=== PATIENT | female | born 1955 | race Caucasian/White ===

== ENCOUNTER 2019-11-24 16:39 | Emergency (ER) | payer OTHER, BC ==
--- OUTSIDE RECORDS SUMMARY | 2019-11-24 16:49 | XMS REPORT ---
:1955 [facility] Address [address] [place] [address] Care Team Providers Name Role Phone Unavailable Unavailable Unavailable Payers Payer Name Policy Type Policy Number Effective Date Expiration Date Problems This patient has no known problems. Allergies, Adverse Reactions, Alerts Allergy Name Allergy Status Severity Reaction(s) Onset Inactive Treating Comments Type Date Date Clinician codeine DA Active 2019-04 00:00:0 0 thyroid, DA Active SV 2019-04 por 00:00:0 0 MACROLIDES DA Active 2019-04 00:00:0 0 Medications This patient has no known medications. Results Test Description Test Time Test Comments Text Results Atomic Results Result Comments GLUBED 2019-04-10 07:09:00 Test Item Value Reference Range Comments GLUBED (test code=GLUBED) 123 MG/DL 74-106 BASIC METABOLIC [id number] 14:42:00 Test Item Value Reference Range Comments SODIUM (test code=NA) 141 mmol/L 137-145 POTASSIUM (test code=K) 4.0 mmol/L 3.4-5.0 CHLORIDE (test code=CL) 106 mmol/L 98-107 CARBON DIOXIDE (test 27 mmol/L 22-30 code=CO2) GLUCOSE (test code=GLU) 88 mg/dL 74-106 BLOOD UREA NITROGEN (test 16 mg/dL 7-17 code=BUN) GLOMERULAR FILTRATION RATE 53 >60 The estimated glomerular (test code=GFR) filtration rate is computed usingpatient race, age (>18), sex, and serum creatinine. If anyof the needed data elements are missing the Laboratory cannot compute an estimation of the glomerular filtration rate. CREATININE (test code=CREAT) 1.1 mg/dL 0.5-1.0 CALCIUM (test code=CA) 9.7 mg/dL 8.4-10.2 PROTHROMBIN [id number] 14:40:00 Test Item Value Reference Range Comments PROTHROMBIN TIME PATIENT 10.9 SECONDS 9.2-12.1 (test code=PTP) INTERNATIONAL NORMAL RATIO 1.0 The INR is to be used only (test code=INR) for monitoring ORAL ANTICOAGULANTTHERAPY. Indication INR Value1. Prophylaxis/treatment of: Venous Thrombosis, Pulmonary Embolism 2.0 - 3.02. Prevention of systemic embolism from: Tissue heart valves 2.0 - 3.0 Acute myocardial infarction (to present systemic embolism)* 2.0 - 3.0 Valvular heart disease 2.0 - 3.0 Atrial fibrillation 2.0 - 3.03. Mechanical prosthetic valves (high risk) 2.5 - 3.5 * If oral anticoagulant therapy is elected to preventrecurrent myocardial infarction, an INR of 2.5-3.5 isrecommended, consistent with Food and Drug Administrationrecommendations . IS PATIENT ON ANTICOAGULANTS ? YESLIST ANTICOAGULANT/ANTI PLT MEDICATION: AspirinTHROMBOPLASTIN TIME [id number] 14:40:00 Test Item Value Reference Range Comments THROMBOPLASTIN TIME PARTIAL 26.6 SECONDS 23.4-37.0 Therapeutic Range for (test code=PTT) Heparin EFFECTIVE 05/13/13 Heparin IU/mL aPTT Seconds0.3 64.30.7 88.8 IS PATIENT ON ANTICOAGULANTS ? YESLIST ANTICOAGULANT/ANTI PLT MEDICATION: AspirinCBC W/AUTO [id number] 14:26:00 Test Item Value Reference Range Comments WHITE BLOOD CELL (test code=WBC) 8.3 x10 3/uL 5.0-12.0 RED BLOOD CELL (test code=RBC) 4.24 x10 6/uL 4.20-5.40 HEMOGLOBIN (test code=HGB) 12.7 g/dL 12.0-16.0 HEMATOCRIT (test code=HCT) 39.4 % 36.0-46.0 MEAN CELL VOLUME (test code=MCV) 93 fL 81-99 MEAN CELL HGB (test code=MCH) 30.0 pg 27-31 MEAN CELL HGB CONCENTRATION (test code=MCHC) 32.2 g/dL 33-37 RED CELL DISTRIBUTION WIDTH (test code=RDW) 13.6 % 11.5-15.5 PLATELET COUNT (test code=PLT) 267 x10 3/uL 130-400 MEAN PLATELET VOLUME (test code=MPV) 9.2 fL 9.4-16.4 NEUTROPHIL % (test code=NT%) 69.2 % 43-65 IMMATURE GRANULOCYTE % (test code=IG%) 0.4 % 0.0-2.0 LYMPHOCYTE % (test code=LY%) 19.2 % 20.5-45.5 MONOCYTE % (test code=MO%) 7.5 % 5.5-11.7 EOSINOPHIL % (test code=EO%) 3.0 % 0.9-2.9 BASOPHIL % (test code=BA%) 0.7 % 0.2-1.0 NUCLEATED RBC % (test code=NRBC%) 0.0 % 0-1.0 NEUTROPHIL # (test code=NT#) 5.71 x10 3/uL 2.2-4.8 IMMATURE GRANULOCYTE # (test code=IG#) 0.03 x10 3/uL 0-0.03 LYMPHOCYTE # (test code=LY#) 1.58 x10 3/uL 1.3-2.9 MONOCYTE # (test code=MO#) 0.62 x10 3/uL 0.3-0.8 EOSINOPHIL # (test code=EO#) 0.25 x10 3/uL 0.0-0.2 BASOPHIL # (test code=BA#) 0.06 x10 3/uL 0.0-0.1 - XR CHEST 2 [id number] 14:10:00 FAX: Leighann Mirza [phone] [place]: [facility]: PRE FAX: Deyvi Sandoval [facility] [phone] --- Name: PAUL FUNK [facility] : 1955 Age/S: 64/F [address] Unit #: [id number] Loc: [place] [address] Phys: Deyvi Chappell DPM Acct: [id number] Dis Date: Status: PRE SDC PHONE #: [phone] Exam Date: 04/06/2019 1349 FAX #: [phone] Reason: PREOP EXAMS: CPT CODE: [id number] XR CHEST 2 V [id number] EXAM: - XR CHEST 2 V LOCATION: C3 HISTORY: PREOP COMPARISON: None available time of interpretation. FINDINGS: 2 views of the chest. No indwelling lines or tubes. No pneumothorax. The lungs are clear. No pleural effusions are present. The mediastinal contours are unremarkable. No acute osseous findings are present. IMPRESSION: No acute cardiopulmonary abnormality. at 1410 Reported and signed by: Lorene JACK, Anthony CC: Leighann Hammond MD; Deyvi Chappell Technologist: EMIR ROBLEDO; STUDENT 2ND YEAR Trnmsrd Date/Time/By: 04/06/2019(1410) : By: [email or web address] PAGE 1 Signed Report FAX: Leighann Mirza [place]: St: PRE FAX: Deyvi Sandoval DPM [phone] -- Name: PAUL FUNK [facility] : 1955 Age/S: 64/F [address] Unit #: [id number] Loc: [place] [address] Phys: Deyvi Chappell DPM Acct: [id number] Dis Date: Status: PRE SDC PHONE #: [phone] Exam Date: 04/06/2019 1349 FAX #: [phone] Reason:PREOP EXAMS: CPT CODE: [id number] XR CHEST 2 V [id number] <Continued> Orig Print D/T : S: 04/06/2019 (1813) PAGE 2 Signed Report
--- NOTE | 2019-11-24 17:54 | EDPHYS ---
Physician Documentation [facility] Name: Roz Manzanares Age: 64 yrs Sex: Female : 1955 Arrival Date: 11/24/2019 Time: 16:44 Bed 18 Private MD: ED Physician Josemanuel Perez HPI: 11/24 17:11 This 64 yrs old Female presents to ER via Ambulatory with complaints of Fall kb Injury, Wrist Injury. 17:11 Details of fall: The patient fell from a height, trailer hitch onto outstretched hand. kb Onset: The symptoms/episode began/occurred just prior to arrival. Associated injuries: The patient sustained right wrist and right forearm, decreased range of motion, deformity, painful injury, swelling. Severity of symptoms: At their worst the symptoms were moderate, in the emergency department the symptoms are unchanged. The patient has not experienced similar symptoms in the past. The patient has not recently seen a physician. Historical: - Allergies: 16:55 Codeine; sv 16:55 [place] Thyroid; sv 17:03 Clarithromycin; sv ROS: 17:10 Constitutional: Negative for fever, chills, and weight loss, Neck: Negative for injury, kb pain, and swelling, Cardiovascular: Negative for chest pain, palpitations, and edema, Respiratory: Negative for shortness of breath, cough, wheezing, and pleuritic chest pain, Abdomen/GI: Negative for abdominal pain, nausea, vomiting, diarrhea, and constipation, Back: Negative for injury and pain, Skin: Negative for injury, rash, and discoloration, Neuro: Negative for headache, weakness, numbness, tingling, and seizure. 17:10 MS/extremity: Positive for injury or acute deformity, decreased range of motion, pain, swelling, tenderness, of the right wrist. Exam: 17:10 Constitutional: This is a well developed, well nourished patient who is awake, alert, kb and in no acute distress. Head/Face: Normocephalic, atraumatic. ENT: Nares patent. No nasal discharge, no septal abnormalities noted. Tympanic membranes are normal and external auditory canals are clear. Oropharynx with no redness, swelling, or masses, exudates, or evidence of obstruction, uvula midline. Mucous membranes moist. Neck: Trachea midline, no thyromegaly or masses palpated, and no cervical lymphadenopathy. Supple, full range of motion without nuchal rigidity, or vertebral point tenderness. No Meningismus. Chest/axilla: Normal chest wall appearance and motion. Nontender with no deformity. No lesions are appreciated. Cardiovascular: Regular rate and rhythm with a normal S1 and S2. No gallops, murmurs, or rubs. Normal PMI, no JVD. No pulse deficits. Respiratory: Lungs have equal breath sounds bilaterally, clear to auscultation and percussion. No rales, rhonchi or wheezes noted. No increased work of breathing, no retractions or nasal flaring. Abdomen/GI: Soft, non-tender, with normal bowel sounds. No distension or tympany. No guarding or rebound. No evidence of tenderness throughout. Skin: Warm, dry with normal turgor. Normal color with no rashes, no lesions, and no evidence of cellulitis. Neuro: Awake and alert, GCS 15, oriented to person, place, time, and situation. Cranial nerves II-XII grossly intact. Motor strength 5/5 in all extremities. Sensory grossly intact. Cerebellar exam normal. Normal gait. 17:10 Musculoskeletal/extremity: Extremities: grossly normal except: noted in the right wrist and right forearm: decreased ROM, deformity, pain, swelling, tenderness, ROM: limited active range of motion, in the right wrist, Circulation is intact in all extremities. Sensation intact. Vital Signs: 16:56 BP 135 / 89; Pulse 81; Resp 20; Temp 98.6; Pulse Ox 100% ; Weight 74.84 kg; Height 5 sv ft. 2 in. (157.48 cm); 16:56 Body Mass Index 30.18 (74.84 kg, 157.48 cm) sv MDM: 17:05 Patient medically screened. kb 17:08 Data reviewed: vital signs, nurses notes. Data interpreted: Pulse oximetry: on room air kb is 100 %. Interpretation: normal. 17:12 ED course: Pt does not want anything for pain at this time. kb 17:51 Counseling: I had a detailed discussion with the patient and/or guardian regarding: the kb historical points, exam findings, and any diagnostic results supporting the discharge/admit diagnosis, radiology results, the need for outpatient follow up, a orthopedic surgeon, to return to the emergency department if symptoms worsen or persist or if there are any questions or concerns that arise at home. 11/24 17:07 Order name: Forearm Right XRAY; Complete Time: 18:08 kb 11/24 17:08 Order name: Ice pack; Complete Time: 17:11 kb 11/24 17:51 Order name: Sugar Tong Forearm Splint; Complete Time: 18:14 kb 11/24 17:51 Order name: Sling; Complete Time: 18:13 kb Administered Medications: No medications were administered Disposition: 11/25 16:42 Co-signature as Attending Physician, Josemanuel Perez MD. rn Disposition: 11/24/19 17:54 Discharged to Home. Impression: Unspecified fracture of right forearm. - Condition is Stable. - Discharge Instructions: Forearm Fracture, [id number]. - Medication Reconciliation Form, Thank You Letter, Antibiotic Education, Prescription Opioid Use form. - Follow up: Emergency Department; When: As needed; Reason: Worsening of condition. Follow up: Private Physician; When: 2 - 3 days; Reason: Recheck today's complaints, Continuance of care, Re-evaluation by your physician. Signatures: Dispatcher [employer] EDHI Greta Lim, CATERING DRIVER-C CATERING DRIVER-CkNusrat Pickens RN Sly Cortes RN RN sg Nieto, Roman, MD MD pediatric rn: (The following items were deleted from the chart) 11/24 17:03 16:59 Allergies: citromycin?; [facility] 17:12 17:08 Counseling: I had a detailed discussion with the patient and/or guardian regarding: the historical points, exam findings, and any diagnostic results supporting the discharge/admit diagnosis, radiology results, the need for outpatient follow up, a orthopedic surgeon, to return to the emergency department if symptoms worsen or persist or if there are any questions or concerns that arise at home, 18:41 17:54 11/24/2019 17:54 Discharged to Home. Impression: Unspecified fracture of right sg forearm. Condition is Stable. Forms are Medication Reconciliation Form, Thank You Letter, Antibiotic Education, Prescription Opioid Use. Follow up: Emergency Department; When: As needed; Reason: Worsening of condition. Follow up: Private Physician; When: 2 - 3 days; Reason: Recheck today's complaints, Continuance of care, Re-evaluation by your physician. kb
--- NOTE | 2019-11-24 17:54 | ER ---
Nurse's Notes [facility] Name: Roz Manzanares Age: 64 yrs Sex: Female : 1955 Arrival Date: 11/24/2019 Time: 16:44 Bed 18 Private MD: Diagnosis: Unspecified fracture of right forearm Presentation: 11/24 16:53 Presenting complaint: Patient states: she was on a trailer hitch and slipped off of it sv and landed on her right wrist mostly. Care prior to arrival: None. Mechanism of Injury: Fall. 16:53 Acuity: JIMENEZ 3 sv 16:53 Method Of Arrival: Ambulatory sv 16:54 Transition of care: patient was not received from another setting of care. Onset of sv symptoms was November 24, 2019. Trauma Activation: Not Applicable Physician: ED Physician; Name: ; Notified At: ; Arrived At: Physician: General Surgeon; Name: ; Notified At: ; Arrived At: Physician: Radiology; Name: ; Notified At: ; Arrived At: Physician: Respiratory; Name: ; Notified At: ; Arrived At: Physician: Lab; Name: ; Notified At: ; Arrived At: Historical: - Allergies: 16:55 Codeine; sv 16:55 [place] Thyroid; sv 17:03 Clarithromycin; sv Assessment: 17:24 General: Appears in no apparent distress. well groomed, well developed, well nourished, sg Behavior is calm, cooperative, appropriate for age. Pain: Complains of pain in right wrist and right forearm Quality of pain is described as aching, shooting. Neuro: Level of Consciousness is awake, alert, obeys commands, Oriented to person, place, time. Cardiovascular: Capillary refill is brisk in bilateral fingers Patient's skin is warm and dry. Chest pain is denied. Respiratory: Airway is patent Respiratory effort is even, unlabored, Respiratory pattern is regular, symmetrical. GI: No signs and/or symptoms were reported involving the gastrointestinal system. : No signs and/or symptoms were reported regarding the genitourinary system. EENT: No signs and/or symptoms were reported regarding the EENT system. Derm: Skin is pink, warm \T\ dry. Musculoskeletal: Circulation, motion, and sensation intact. Swelling present in right wrist and right forearm. Vital Signs: 16:56 BP 135 / 89; Pulse 81; Resp 20; Temp 98.6; Pulse Ox 100% ; Weight 74.84 kg; Height 5 sv ft. 2 in. (157.48 cm); 16:56 Body Mass Index 30.18 (74.84 kg, 157.48 cm) sv ED Course: 16:44 Patient arrived in ED. mr 16:54 Triage completed. sv 16:56 Arm band placed on. sv 17:05 Greta Lim FNP-C is [facility]. kb 17:05 Josemanuel Perez MD is Attending Physician. kb 17:05 Sly Díaz, RN is Primary Nurse. sg 17:53 Forearm Right XRAY In Process Unspecified. EDMS Administered Medications: No medications were administered Outcome: 17:54 Discharge ordered by . kb 18:41 Patient left the ED. sg Signatures: Dispatcher [employer] EDMS Greta Lim FNP-C FNP-Ckb Verde, Stephanie, RN RN Sly Díaz, RN RN Akiko Win mr Corrections: (The following items were deleted from the chart) 17:00 16:56 Pulse 81bpm; Resp 20bpm; Pulse Ox 100%; Temp 98.6F; sv sv 17:03 16:59 Allergies: citromycin?; sv sv
--- NOTE | 2019-11-24 18:04 | RAD REPORT ---
EXAM DESCRIPTION: RAD - Forearm Right - 11/24/2019 5:52 pm CLINICAL HISTORY: PAIN COMPARISON: No comparisons FINDINGS: Mildly comminuted intra-articular fracture of the distal radius is seen. Ulnar styloid non displaced fracture also present.
== END 2019-11-24 18:41 | disposition home or self-care (01) ==
LOC: ER 16:39
PROC: 2W3CX1Z Immobilization of Right Lower Arm using Splint (ICD-10-PCS; principal; 2019-11-24)
DX: S52.501A Unspecified fracture of the lower end of right radius, initial encounter for closed fracture (principal); W17.89XA Other fall from one level to another, initial encounter; Y93.89 Activity, other specified; Y92.9 Unspecified place or not applicable; Z88.6 Allergy status to analgesic agent; Z88.3 Allergy status to other anti-infective agents
CPT/HCPCS: 99282